=== PATIENT | male | born 1985 | race Caucasian/White ===

== ENCOUNTER 2017-09-18 16:19 | Emergency (ER) | payer SELFPAY ==
[2017-09-18] MEDS ORDERED: NS 1,000 ML IV ONE (16:24)
[2017-09-18] MEDS ORDERED: HYDROmorphONE/DILAUDID 2 MG/ML INJ IVP ONE ×2 (16:24→17:49)
[2017-09-18] MEDS ORDERED: HYDROmorphONE/DILAUDID 1 MG/ML INJ ONE (16:29)
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
[2017-09-18 17:07] LABS: PLATELET COUNT 285 10^3/uL (150-400)
[2017-09-18] MEDS ORDERED: HYDROmorphONE/DILAUDID 1 MG/ML INJ IVP PRN (17:47)
[2017-09-18] MEDS ORDERED: AMOXICILLIN 400MG/5ML PREPACK BTL TAKEHOME ONE (18:47)
[2017-09-18 19:14] VITALS: BP 142/90
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
== END 2017-09-18 19:12 | disposition home or self-care (01) ==
DX: S02.40DA Maxillary fracture, left side, initial encounter for closed fracture (principal); S02.642A Fracture of ramus of left mandible, initial encounter for closed fracture; E86.9 Volume depletion, unspecified; Y04.0XXA Assault by unarmed brawl or fight, initial encounter; Y92.009 Unspecified place in unspecified non-institutional (private) residence as the place of occurrence of the external cause
CPT/HCPCS: 96374; G0480; J1170